=== PATIENT | female | born 1970 | race Caucasian/White ===

== ENCOUNTER 2016-07-09 20:12 | Emergency (ER) | payer SELFPAY ==
[2014-08-12 14:17] VITALS: BMI 23.3
[~2016-07-09 20:12] MED LIST: PRINIVIL10 MG PO; PROAIR HFA8.5 GM INH; PROZAC20 MG PO
[2016-07-09 20:41] LABS: BASOPHILS 0.8 % (0.0-2.0); EOSINOPHILS 1.3 % (0-7); HEMATOCRIT 45.1 % (36.0-48.0); HEMOGLOBIN 15.1 g/dL (12-16); IMMATURE GRANULOCYTES 0.3 % (0-5); LYMPHOCYTES 24.5 % (15-50); MCH 31.9 pg (26.0-34.0); MCHC 33.5 g/dL (31.0-37.0); MCV 95.1 fL (80.0-100.0); MEAN PLATELET VOLUME 10.6 fL (7.4-10.4); MONOCYTES 9.3 % (2-11); NEUTROPHILS 63.8 % (40-80); PLATELET COUNT 499 10x3/uL (130-400); RBC 4.74 10x6/uL (4.00-5.40); RDW 13.3 % (11.5-14.5); WBC 13.2 10x3/uL (4.8-10.8)
[2016-07-09 20:50] LABS: HCG SERUM NEGATIVE (NEGATIVE)
[2016-07-09 20:51] LABS: APTT 29.4 SECONDS (22.8-39.4); INR 0.97 (0.85-1.17); PROTIME 12.8 SECONDS (11.6-15.0)
[2016-07-09 20:58] LABS: ALBUMIN 3.8 g/dL (3.4-5.0); ALKALINE PHOSPHATASE 121 U/L (46-116); ALT (SGPT) 30 U/L (10-68); CALC OSMOLALITY 272 mosm/kg (275-300); CALCIUM 8.9 mg/dL (8.5-10.1); CARBON DIOXIDE 26.2 mmol/L (21.0-32.0); CHLORIDE - SERUM 103 mmol/L (98-107); CREATININE - SERUM 0.7 mg/dL (0.6-1.3); GLUCOSE 90 mg/dL (74-106); POTASSIUM - SERUM 3.7 mmol/L (3.5-5.1); PROTEIN - SERUM 8.1 g/dL (6.4-8.2); SODIUM 137 mmol/L (136-145); UREA NITROGEN 9 mg/dL (7-18); eGFR NON AFRICAN AMERICAN > 90 mL/min (90-120)
== END 2016-07-09 22:40 | disposition home or self-care (01) ==
LOC: D.ER 20:12
PROVIDERS: Surgery
DX: T63.001A Toxic effect of unspecified snake venom, accidental (unintentional), initial encounter (principal); S91.051A Open bite, right ankle, initial encounter; Y92.017 Garden or yard in single-family (private) house as the place of occurrence of the external cause; I10 Essential (primary) hypertension

== ENCOUNTER 2016-09-05 11:13 | Emergency (ER) | payer SELFPAY ==
[2014-08-12 14:17] VITALS: BMI 23.3
== END 2016-09-05 11:47 | disposition home or self-care (01) ==
LOC: D.ER 11:13
DX: L02.811 Cutaneous abscess of head [any part, except face] (principal); B95.62 Methicillin resistant Staphylococcus aureus infection as the cause of diseases classified elsewhere; I10 Essential (primary) hypertension; F17.200 Nicotine dependence, unspecified, uncomplicated

== ENCOUNTER 2016-09-14 09:31 | Emergency (ER) | payer MEDICAID ==
[2014-08-12 14:17] VITALS: BMI 23.3
== END 2016-09-14 10:47 | disposition home or self-care (01) ==
LOC: D.ER 09:31
DX: L73.8 Other specified follicular disorders (principal); B35.0 Tinea barbae and tinea capitis; R51 Headache

== ENCOUNTER 2016-09-30 16:36 | Emergency (ER) | payer MEDICAID ==
[2014-08-12 14:17] VITALS: BMI 23.3
== END 2016-09-30 19:00 | disposition left against medical advice (07) ==
LOC: D.ER 16:36
DX: M25.572 Pain in left ankle and joints of left foot (principal)

== ENCOUNTER 2016-10-01 12:23 | Emergency (ER) | payer MEDICAID ==
[2014-08-12 14:17] VITALS: BMI 23.3
== END 2016-10-01 13:39 | disposition home or self-care (01) ==
LOC: D.ER 12:23
DX: S93.402A Sprain of unspecified ligament of left ankle, initial encounter (principal); W19.XXXA Unspecified fall, initial encounter; Y93.89 Activity, other specified; Y92.89 Other specified places as the place of occurrence of the external cause; S93.602A Unspecified sprain of left foot, initial encounter; I10 Essential (primary) hypertension

== ENCOUNTER 2016-10-23 02:41 | Emergency (ER) | payer MEDICAID ==
[2014-08-12 14:17] VITALS: BMI 23.3
== END 2016-10-23 03:42 | disposition home or self-care (01) ==
LOC: D.ER 02:41
DX: L02.01 Cutaneous abscess of face (principal); S93.402A Sprain of unspecified ligament of left ankle, initial encounter; X58.XXXA Exposure to other specified factors, initial encounter; F17.200 Nicotine dependence, unspecified, uncomplicated

== ENCOUNTER 2016-11-06 10:04 | Emergency (ER) | payer MEDICAID ==
[2014-08-12 14:17] VITALS: BMI 23.3
== END 2016-11-06 11:49 | disposition home or self-care (01) ==
LOC: D.ER 10:04
DX: R51 Headache (principal); L02.416 Cutaneous abscess of left lower limb; I10 Essential (primary) hypertension; F17.200 Nicotine dependence, unspecified, uncomplicated

== ENCOUNTER 2016-11-12 11:31 | Emergency (ER) | payer MEDICAID ==
[2014-08-12 14:17] VITALS: BMI 23.3
== END 2016-11-12 12:18 | disposition home or self-care (01) ==
LOC: D.ER 11:31
DX: L02.811 Cutaneous abscess of head [any part, except face] (principal); F17.200 Nicotine dependence, unspecified, uncomplicated

== ENCOUNTER 2017-01-20 10:06 | Emergency (ER) | payer MEDICAID ==
[2014-08-12 14:17] VITALS: BMI 23.3
== END 2017-01-20 11:53 | disposition home or self-care (01) ==
LOC: D.ER 10:06
DX: L02.611 Cutaneous abscess of right foot (principal); I10 Essential (primary) hypertension

== ENCOUNTER 2017-03-12 05:01 | Emergency (ER) | payer MEDICAID ==
[2014-08-12 14:17] VITALS: BMI 23.3
== END 2017-03-12 07:03 | disposition home or self-care (01) ==
LOC: D.ER 05:01
DX: K08.89 Other specified disorders of teeth and supporting structures (principal); M27.3 Alveolitis of jaws; I10 Essential (primary) hypertension

== ENCOUNTER 2017-04-25 08:22 | Emergency (ER) | payer MEDICAID ==
[2014-08-12 14:17] VITALS: BMI 23.3
== END 2017-04-25 09:45 | disposition home or self-care (01) ==
LOC: D.ER 08:22
DX: J20.9 Acute bronchitis, unspecified (principal)

== ENCOUNTER 2017-04-30 09:54 | Inpatient (IN) | payer MEDICAID ==
[~2017-04-30] VITALS: Ht 154.9 cm; Wt 64.9 kg
--- NOTE | ~2017-04-30 | EC ---
PATIENT:RORY SIMMS DATE OF SERVICE: 04/30/17 SEX: F MEDICAL RECORD: [id number] DATE OF : [birth year] LOCATION:[facility] AGE OF PATIENT: 47 ADMISSION DATE: 04/30/17 REFERRING PHYSICIAN: INTERPRETING PHYSICIAN: LUCY GUPTA MD ECHOCARDIOGRAM REPORT ECHO CHARGES CLINICAL DIAGNOSIS: ECHOCARDIOGRAPHIC MEASUREMENTS (adult normal given) AC root (d.<3.7cm) cm LV Septum d (<1.2 cm> cm Valve Excursion cm LV Septum (systole) cm Left Atria (s.<4.0cm> cm LVPW d(<1.2cm) cm RV (d.<2.3cm) cm LVPW (sytole) cm LV diastole(<5.6CM) cm MV E-F(>70mm/sec) cm LV systole cm LVOT Diameter cm MV exc.(>10mm) cm Est.ejection fraction (50-75%) % Pericardial Effusion DOPPLER: LVIT cm/sec A cm/sec E cm/sec LA cm/sec RVSP mmHg LVOT cm/sec AOP1/2T m/s Asc. 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 Left ventricular chamber size is within normal limits. Left ventricular systolic function is normal. Overall ejection fraction estimated at 60%. 2. Left atrium, right atrium, and right ventricular chamber sizes are within normal limits. 3. Valvular structures have normal structure and motion. ECHOCARDIOGRAM REPORT [id number] RORY SIMMS 4. Doppler interrogation reveals mild mitral regurgitation, no other valvular insufficiency or stenosis and pulmonary systolic pressure is normal estimated at 21 mmHg. 5. No evidence of pericardial effusion or left ventricular thrombus. TRANSINT:[id number] Voice Confirmation ID: [id number] DOCUMENT ID: [id number] 05/05/2017 Edited to correct date of service, dmm. LUCY GUPTA MD at 1759 CC: [id number] DICTATION DATE: 05/01/17 1228 [place]OLLEY OPERATOR: 05/01/17 1236 DIS IN 05/03/17 [facility] [address] [place] [address]
[2017-04-30 10:25] LABS: HEMATOCRIT 45.4 % (36.0-48.0); HEMOGLOBIN 15.3 g/dL (12-16); MCH 31.5 pg (26.0-34.0); MCHC 33.7 g/dL (31.0-37.0); MCV 93.4 fL (80.0-100.0); MEAN PLATELET VOLUME 11.2 fL (7.4-10.4); PLATELET COUNT 378 10x3/uL (130-400); RBC 4.86 10x6/uL (4.00-5.40); RDW 14.5 % (11.5-14.5)
[2017-04-30 10:39] LABS: ALBUMIN 3.4 g/dL (3.4-5.0); ALKALINE PHOSPHATASE 141 U/L (46-116); ALT (SGPT) 186 U/L (10-68); BILIRUBIN - TOTAL 0.42 mg/dL (0.2-1.3); CALC OSMOLALITY 278 mosm/kg (275-300); CALCIUM 9.5 mg/dL (8.5-10.1); CARBON DIOXIDE 30.8 mmol/L (21.0-32.0); CHLORIDE - SERUM 100 mmol/L (98-107); CREATININE - SERUM 0.9 mg/dL (0.6-1.3); GLUCOSE 114 mg/dL (74-106); POTASSIUM - SERUM 3.9 mmol/L (3.5-5.1); PROTEIN - SERUM 6.9 g/dL (6.4-8.2); SODIUM 138 mmol/L (136-145); UREA NITROGEN 19 mg/dL (7-18); eGFR NON AFRICAN AMERICAN 71 mL/min (90-120)
[2017-04-30 10:50] LABS: CKMB 1.1 U/L (0.0-3.6); CREATINE KINASE 34 UL (21-215)
[2017-04-30 10:51] LABS: TROPONIN-I < 0.017 ng/mL (0.000-0.060)
[2017-04-30 11:19] LABS: EOSINOPHILS 5 % (0-7); LYMPHOCYTES 21 % (15-50); MONOCYTES 5 % (2-11); NEUTROPHILS 64 % (40-80); PLATELET ESTIMATE NORMAL; PLATELET MORPHOLOGY GIANT PLTS PRESENT
[2017-04-30] MEDS ORDERED: CATAPRES0.1 MG PO (15:13)
[2017-04-30 15:14] VITALS: BP 148/75; BMI 27.0
[2017-04-30 19:07] LABS: CKMB 0.9 U/L (0.0-3.6); CREATINE KINASE 27 UL (21-215)
[2017-04-30 19:08] LABS: TROPONIN-I < 0.017 ng/mL (0.000-0.060)
[2017-04-30 21:31] VITALS: BP 153/96
[2017-05-01 01:21] LABS: CKMB 0.9 U/L (0.0-3.6); CREATINE KINASE 24 UL (21-215); TROPONIN-I 0.022 ng/mL (0.000-0.060)
[2017-05-01 01:38] VITALS: BP 106/57
[2017-05-01 06:17] LABS: BASOPHILS 0.1 % (0-2); EOSINOPHILS 2.7 % (0-7); HEMATOCRIT 42.9 % (36.0-48.0); HEMOGLOBIN 14.2 g/dL (12-16); IMMATURE GRANULOCYTES 1.3 % (0-5); LYMPHOCYTES 42.9 % (15-50); MCHC 33.1 g/dL (31.0-37.0); MCV 93.7 fL (80.0-100.0); MEAN PLATELET VOLUME 10.9 fL (7.4-10.4); MONOCYTES 12.6 % (2-11); NEUTROPHILS 40.4 % (40-80); PLATELET COUNT 367 10x3/uL (130-400); RBC 4.58 10x6/uL (4.00-5.40); RDW 14.6 % (11.5-14.5); WBC 16.5 10x3/uL (4.8-10.8)
[2017-05-01 06:48] LABS: ALBUMIN 2.9 g/dL (3.4-5.0); ALKALINE PHOSPHATASE 117 U/L (46-116); CALC OSMOLALITY 280 mosm/kg (275-300); CALCIUM 8.7 mg/dL (8.5-10.1); CARBON DIOXIDE 29.9 mmol/L (21.0-32.0); CHLORIDE - SERUM 104 mmol/L (98-107); CKMB 0.7 U/L (0.0-3.6); CREATINE KINASE 19 UL (21-215); CREATININE - SERUM 0.8 mg/dL (0.6-1.3); GLUCOSE 82 mg/dL (74-106); POTASSIUM - SERUM 4.3 mmol/L (3.5-5.1); PROTEIN - SERUM 6.1 g/dL (6.4-8.2); SODIUM 141 mmol/L (136-145); TROPONIN-I < 0.017 ng/mL (0.000-0.060); UREA NITROGEN 16 mg/dL (7-18); eGFR NON AFRICAN AMERICAN 81 mL/min (90-120)
[2017-05-01 06:49] LABS: ALT (SGPT) 133 U/L (10-68)
[2017-05-01 07:46] VITALS: BP 193/89
[2017-05-01 08:05] VITALS: BP 194/86
[2017-05-01 12:10] VITALS: BP 155/81
[2017-05-01 14:25] VITALS: Ht 154.9 cm; Wt 64.9 kg
[2017-05-01 16:17] VITALS: BP 189/93
[2017-05-01 22:34] VITALS: BP 174/87
[2017-05-02 04:48] VITALS: BP 171/96
[2017-05-02 05:50] LABS: BASOPHILS 0.2 % (0-2); HEMATOCRIT 41.7 % (36.0-48.0); HEMOGLOBIN 13.5 g/dL (12-16); IMMATURE GRANULOCYTES 1.5 % (0-5); LYMPHOCYTES 28.2 % (15-50); MCHC 32.4 g/dL (31.0-37.0); MCV 95.6 fL (80.0-100.0); MEAN PLATELET VOLUME 11.8 fL (7.4-10.4); NEUTROPHILS 52.1 % (40-80); PLATELET COUNT 332 10x3/uL (130-400); RBC 4.36 10x6/uL (4.00-5.40); RDW 14.7 % (11.5-14.5)
[2017-05-02 06:09] LABS: ALBUMIN 2.8 g/dL (3.4-5.0); ALKALINE PHOSPHATASE 127 U/L (46-116); ALT (SGPT) 102 U/L (10-68); CALC OSMOLALITY 283 mosm/kg (275-300); CALCIUM 9.1 mg/dL (8.5-10.1); CARBON DIOXIDE 30.5 mmol/L (21.0-32.0); CHLORIDE - SERUM 105 mmol/L (98-107); CREATININE - SERUM 0.8 mg/dL (0.6-1.3); GLUCOSE 87 mg/dL (74-106); POTASSIUM - SERUM 4.2 mmol/L (3.5-5.1); PROTEIN - SERUM 5.8 g/dL (6.4-8.2); SODIUM 142 mmol/L (136-145); UREA NITROGEN 19 mg/dL (7-18); eGFR NON AFRICAN AMERICAN 81 mL/min (90-120)
[2017-05-02 08:43] VITALS: BP 177/86
[2017-05-02 12:45] VITALS: BP 161/83
[2017-05-02 21:30] VITALS: BP 153/99
[2017-05-03 01:13] VITALS: BP 148/76
[2017-05-03 05:25] VITALS: BP 169/88
[2017-05-03 05:28] LABS: BASOPHILS 0.1 % (0-2); EOSINOPHILS 4.6 % (0-7); HEMATOCRIT 40.5 % (36.0-48.0); HEMOGLOBIN 13.1 g/dL (12-16); IMMATURE GRANULOCYTES 1.1 % (0-5); LYMPHOCYTES 26.3 % (15-50); MCH 31.1 pg (26.0-34.0); MCHC 32.3 g/dL (31.0-37.0); MCV 96.2 fL (80.0-100.0); MEAN PLATELET VOLUME 10.8 fL (7.4-10.4); MONOCYTES 15.4 % (2-11); NEUTROPHILS 52.5 % (40-80); PLATELET COUNT 336 10x3/uL (130-400); RBC 4.21 10x6/uL (4.00-5.40); RDW 14.9 % (11.5-14.5); WBC 15.5 10x3/uL (4.8-10.8)
[2017-05-03 05:50] LABS: ALBUMIN 2.8 g/dL (3.4-5.0); ALKALINE PHOSPHATASE 124 U/L (46-116); ALT (SGPT) 85 U/L (10-68); BILIRUBIN - TOTAL 0.21 mg/dL (0.2-1.3); CALC OSMOLALITY 283 mosm/kg (275-300); CALCIUM 9.2 mg/dL (8.5-10.1); CARBON DIOXIDE 31.2 mmol/L (21.0-32.0); CHLORIDE - SERUM 104 mmol/L (98-107); CREATININE - SERUM 0.8 mg/dL (0.6-1.3); GLUCOSE 96 mg/dL (74-106); POTASSIUM - SERUM 4.5 mmol/L (3.5-5.1); PROTEIN - SERUM 5.9 g/dL (6.4-8.2); SODIUM 141 mmol/L (136-145); UREA NITROGEN 20 mg/dL (7-18); eGFR NON AFRICAN AMERICAN 81 mL/min (90-120)
[2017-05-03 08:09] VITALS: BP 166/92
[2017-05-03 12:45] VITALS: BP 168/90
[2017-05-03] MEDS ORDERED: ADVAIR 250/501 DISK INH (12:58)
[2017-05-03] MEDS ORDERED: NICODERM C1 PATCH .3 TRANSDERM (12:59)
[2017-05-03] MEDS ORDERED: CHANTIX0.5 MG PO (13:00)
[2017-05-03] MEDS ORDERED: DOXYCYCLINE HY100 M2 PO (13:02)
[2017-05-03] MEDS ORDERED: ADVAIR 100/501 DISK INH (14:21)
== END 2017-05-03 14:45 | disposition home or self-care (01) | DRG 194 ==
LOC: D.ER 09:54 → D.MS 13:39
PROVIDERS: Family Medicine; Internal Medicine Nephrology; Nurse Practitioner Family
DX: J18.9 Pneumonia, unspecified organism (principal); F17.203 Nicotine dependence unspecified, with withdrawal; J44.9 Chronic obstructive pulmonary disease, unspecified; I10 Essential (primary) hypertension; Z78.0 Asymptomatic menopausal state; R07.89 Other chest pain; Z23 Encounter for immunization

== ENCOUNTER 2017-05-21 09:30 | Emergency (ER) | payer MEDICAID ==
[2017-05-01 14:25] VITALS: BMI 27.0
[~2017-05-21 09:30] MED LIST changes: +ADVAIR 100/501 DISK INH; +ADVAIR 250/501 DISK INH; +CATAPRES0.1 MG PO; +CHANTIX0.5 MG PO; +DOXYCYCLINE HY100 M2 PO; +NICODERM C1 PATCH .3 TRANSDERM
== END 2017-05-21 11:20 | disposition home or self-care (01) ==
LOC: D.ER 09:30
DX: G43.909 Migraine, unspecified, not intractable, without status migrainosus (principal); I10 Essential (primary) hypertension; F17.200 Nicotine dependence, unspecified, uncomplicated

== ENCOUNTER 2017-05-24 10:38 | Emergency (ER) | payer MEDICAID ==
[2017-05-01 14:25] VITALS: BMI 27.0
== END 2017-05-24 12:55 | disposition home or self-care (01) ==
LOC: D.ER 10:38
DX: R51 Headache (principal); I10 Essential (primary) hypertension

== ENCOUNTER 2017-05-30 06:17 | Emergency (ER) | payer MEDICAID ==
[2017-05-01 14:25] VITALS: BMI 27.0
[2017-05-30 06:42] LABS: HEMATOCRIT 42.8 % (36.0-48.0); HEMOGLOBIN 14.4 g/dL (12-16); MCH 31.4 pg (26.0-34.0); MCHC 33.6 g/dL (31.0-37.0); MCV 93.2 fL (80.0-100.0); MEAN PLATELET VOLUME 11.1 fL (7.4-10.4); PLATELET COUNT 312 10x3/uL (130-400); RBC 4.59 10x6/uL (4.00-5.40); WBC 9.6 10x3/uL (4.8-10.8)
[2017-05-30 07:11] LABS: ALBUMIN 3.5 g/dL (3.4-5.0); ALKALINE PHOSPHATASE 150 U/L (46-116); ALT (SGPT) 50 U/L (10-68); CALC OSMOLALITY 281 mosm/kg (275-300); CALCIUM 8.5 mg/dL (8.5-10.1); CARBON DIOXIDE 26.4 mmol/L (21.0-32.0); CHLORIDE - SERUM 104 mmol/L (98-107); CREATININE - SERUM 0.8 mg/dL (0.6-1.3); GLUCOSE 82 mg/dL (74-106); POTASSIUM - SERUM 3.7 mmol/L (3.5-5.1); PROTEIN - SERUM 7.3 g/dL (6.4-8.2); SODIUM 141 mmol/L (136-145); UREA NITROGEN 17 mg/dL (7-18); eGFR NON AFRICAN AMERICAN 81 mL/min (90-120)
[2017-05-30 07:12] LABS: EOSINOPHILS 1 % (0-7); LYMPHOCYTES 38 % (15-50); MONOCYTES 10 % (2-11); NEUTROPHILS 45 % (40-80)
[2017-05-30 07:13] LABS: BILIRUBIN - TOTAL 0.09 mg/dL (0.2-1.3); PLATELET ESTIMATE NORMAL
== END 2017-05-30 07:42 | disposition home or self-care (01) ==
LOC: D.ER 06:17
PROVIDERS: Family Medicine
DX: B34.9 Viral infection, unspecified (principal); J06.9 Acute upper respiratory infection, unspecified; I10 Essential (primary) hypertension

== ENCOUNTER 2017-07-04 11:52 | Emergency (ER) | payer MEDICAID ==
[2017-05-01 14:25] VITALS: BMI 27.0
[2017-07-04 12:34] LABS: BASOPHILS 0.4 % (0-2); EOSINOPHILS 2.1 % (0-7); HEMATOCRIT 39.8 % (36.0-48.0); HEMOGLOBIN 13.3 g/dL (12-16); IMMATURE GRANULOCYTES 0.4 % (0-5); LYMPHOCYTES 26.9 % (15-50); MCH 32.4 pg (26.0-34.0); MCHC 33.4 g/dL (31.0-37.0); MCV 97.1 fL (80.0-100.0); MEAN PLATELET VOLUME 10.4 fL (7.4-10.4); MONOCYTES 11.2 % (2-11); PLATELET COUNT 361 10x3/uL (130-400); RDW 14.7 % (11.5-14.5); WBC 13.5 10x3/uL (4.8-10.8)
[2017-07-04 12:49] LABS: ALBUMIN 3.2 g/dL (3.4-5.0); ALKALINE PHOSPHATASE 112 U/L (46-116); ALT (SGPT) 16 U/L (10-68); BILIRUBIN - TOTAL 0.22 mg/dL (0.2-1.3); CALC OSMOLALITY 285 mosm/kg (275-300); CALCIUM 8.5 mg/dL (8.5-10.1); CARBON DIOXIDE 28.4 mmol/L (21.0-32.0); CHLORIDE - SERUM 107 mmol/L (98-107); CREATININE - SERUM 0.7 mg/dL (0.6-1.3); GLUCOSE 102 mg/dL (74-106); MAGNESIUM - SERUM 1.6 mg/dL (1.8-2.4); POTASSIUM - SERUM 4.2 mmol/L (3.5-5.1); PROTEIN - SERUM 6.8 g/dL (6.4-8.2); SODIUM 143 mmol/L (136-145); UREA NITROGEN 14 mg/dL (7-18); eGFR NON AFRICAN AMERICAN > 90 mL/min (90-120)
[2017-07-04 14:24] LABS: APPEARANCE HAZY (CLEAR); BILIRUBIN NEGATIVE (NEGATIVE); COLOR YELLOW (YELLOW); GLUCOSE NEGATIVE (NEGATIVE); KETONE NEGATIVE (NEGATIVE); NITRITE NEGATIVE (NEGATIVE); PROTEIN NEGATIVE (NEGATIVE); SPECIFIC GRAVITY 1.015 (1.005-1.020); UROBILINOGEN NORMAL (NORMAL)
[2017-07-04 15:09] LABS: UDS - AMPHET NEGATIVE QUAL (NEGATIVE); UDS - BARB POSITIVE QUAL (NEGATIVE); UDS - BENZO NEGATIVE QUAL (NEGATIVE); UDS - COCAINE NEGATIVE QUAL (NEGATIVE); UDS - OPIATE NEGATIVE QUAL (NEGATIVE); UDS - PCP NEGATIVE QUAL (NEGATIVE); UDS - THC POSITIVE QUAL (NEGATIVE)
== END 2017-07-04 14:50 | disposition home or self-care (01) ==
LOC: D.ER 11:52
PROVIDERS: Family Medicine
DX: G40.909 Epilepsy, unspecified, not intractable, without status epilepticus (principal); R51 Headache; J01.90 Acute sinusitis, unspecified; I10 Essential (primary) hypertension; F17.200 Nicotine dependence, unspecified, uncomplicated

== ENCOUNTER 2017-07-13 19:24 | Emergency (ER) | payer MEDICAID ==
[2017-05-01 14:25] VITALS: BMI 27.0
== END 2017-07-13 20:39 | disposition home or self-care (01) ==
LOC: D.ER 19:24
DX: K02.9 Dental caries, unspecified (principal); K08.89 Other specified disorders of teeth and supporting structures; I10 Essential (primary) hypertension; G40.909 Epilepsy, unspecified, not intractable, without status epilepticus

== ENCOUNTER 2017-07-15 14:11 | Emergency (ER) | payer MEDICAID ==
[2017-05-01 14:25] VITALS: BMI 27.0
== END 2017-07-15 14:38 | disposition home or self-care (01) ==
LOC: D.ER 14:11
DX: K02.9 Dental caries, unspecified (principal); K08.89 Other specified disorders of teeth and supporting structures; F17.200 Nicotine dependence, unspecified, uncomplicated; I10 Essential (primary) hypertension; G40.909 Epilepsy, unspecified, not intractable, without status epilepticus

== ENCOUNTER 2017-07-22 11:28 | Emergency (ER) | payer MEDICAID ==
[2017-05-01 14:25] VITALS: BMI 27.0
[2017-07-22 12:27] LABS: BASOPHILS 0.7 % (0-2); EOSINOPHILS 2.9 % (0-7); HEMATOCRIT 41.2 % (36.0-48.0); IMMATURE GRANULOCYTES 0.3 % (0-5); LYMPHOCYTES 29.5 % (15-50); MCH 32.7 pg (26.0-34.0); MCV 96.3 fL (80.0-100.0); MEAN PLATELET VOLUME 10.9 fL (7.4-10.4); MONOCYTES 11.9 % (2-11); NEUTROPHILS 54.7 % (40-80); PLATELET COUNT 361 10x3/uL (130-400); RBC 4.28 10x6/uL (4.00-5.40); RDW 13.8 % (11.5-14.5); WBC 12.2 10x3/uL (4.8-10.8)
[2017-07-22 12:40] LABS: ALBUMIN 3.3 g/dL (3.4-5.0); ALKALINE PHOSPHATASE 109 U/L (46-116); ALT (SGPT) 15 U/L (10-68); BILIRUBIN - TOTAL 0.17 mg/dL (0.2-1.3); CALC OSMOLALITY 278 mosm/kg (275-300); CALCIUM 8.5 mg/dL (8.5-10.1); CARBON DIOXIDE 28.5 mmol/L (21.0-32.0); CHLORIDE - SERUM 105 mmol/L (98-107); CREATININE - SERUM 0.8 mg/dL (0.6-1.3); GLUCOSE 95 mg/dL (74-106); POTASSIUM - SERUM 4.2 mmol/L (3.5-5.1); PROTEIN - SERUM 6.6 g/dL (6.4-8.2); SODIUM 140 mmol/L (136-145); UREA NITROGEN 12 mg/dL (7-18); eGFR NON AFRICAN AMERICAN 81 mL/min (90-120)
[2017-07-22 12:43] LABS: CREATINE KINASE 44 UL (21-215); LIPASE 112 U/L (73-393); TROPONIN-I < 0.017 ng/mL (0.000-0.060)
[2017-07-22 12:52] LABS: UDS - AMPHET NEGATIVE QUAL (NEGATIVE); UDS - BARB POSITIVE QUAL (NEGATIVE); UDS - BENZO NEGATIVE QUAL (NEGATIVE); UDS - COCAINE NEGATIVE QUAL (NEGATIVE); UDS - OPIATE NEGATIVE QUAL (NEGATIVE); UDS - PCP NEGATIVE QUAL (NEGATIVE); UDS - THC POSITIVE QUAL (NEGATIVE)
[2017-07-22 12:54] LABS: APPEARANCE CLEAR (CLEAR); BILIRUBIN NEGATIVE (NEGATIVE); COLOR STRAW (YELLOW); GLUCOSE NEGATIVE (NEGATIVE); KETONE NEGATIVE (NEGATIVE); NITRITE NEGATIVE (NEGATIVE); PROTEIN NEGATIVE (NEGATIVE); SPECIFIC GRAVITY 1.005 (1.005-1.020); UROBILINOGEN NORMAL (NORMAL)
== END 2017-07-22 12:54 | disposition left against medical advice (07) ==
LOC: D.ER 11:28
PROVIDERS: Family Medicine
DX: R56.9 Unspecified convulsions (principal); I10 Essential (primary) hypertension

== ENCOUNTER 2017-09-05 18:05 | Emergency (ER) | payer MEDICAID ==
[2017-05-01 14:25] VITALS: BMI 27.0
== END 2017-09-05 19:30 | disposition left against medical advice (07) ==
LOC: D.ER 18:05
DX: R05 Cough (principal)

== ENCOUNTER 2017-10-14 10:37 | Emergency (ER) | payer MEDICAID ==
[~2017-10-14] VITALS: Ht 154.9 cm; Wt 65.0 kg
[2017-10-14 10:48] VITALS: Ht 154.9 cm; Wt 65.0 kg
[2017-10-14] MEDS ORDERED: TORADOL10 MG PO (11:57)
[2017-10-14] MEDS ORDERED: CATAPRES0.1 MG PO (12:01)
[2017-10-14] MEDS ORDERED: KEPPRA500 MG PO (12:01)
[2017-10-14] MEDS ORDERED: ZESTRIL10 MG PO (12:01)
[2017-10-14 12:45] VITALS: BP 129/68
== END 2017-10-14 12:46 | disposition home or self-care (01) ==
LOC: D.ER 10:37
DX: S20.212A Contusion of left front wall of thorax, initial encounter (principal); S20.211A Contusion of right front wall of thorax, initial encounter; Y04.2XXA Assault by strike against or bumped into by another person, initial encounter; Y93.89 Activity, other specified; Y92.019 Unspecified place in single-family (private) house as the place of occurrence of the external cause; I10 Essential (primary) hypertension; J44.9 Chronic obstructive pulmonary disease, unspecified

== ENCOUNTER 2017-11-15 14:01 | Emergency (ER) | payer MEDICAID ==
[~2017-11-15] VITALS: Ht 154.9 cm; Wt 68.2 kg
[~2017-11-15 14:01] MED LIST changes: +KEPPRA500 MG PO; +TORADOL10 MG PO; +ZESTRIL10 MG PO
[2017-11-15 14:21] VITALS: Ht 154.9 cm; Wt 68.2 kg
[2017-11-15] MEDS ORDERED: ROBAXIN500 MG PO (16:20)
[2017-11-15 17:22] VITALS: BP 145/72
== END 2017-11-15 16:30 | disposition home or self-care (01) ==
LOC: D.ER 14:01
DX: M79.604 Pain in right leg (principal); I10 Essential (primary) hypertension; I25.10 Atherosclerotic heart disease of native coronary artery without angina pectoris; J44.9 Chronic obstructive pulmonary disease, unspecified; F17.200 Nicotine dependence, unspecified, uncomplicated

== ENCOUNTER 2017-12-13 17:37 | Emergency (ER) | payer SELFPAY ==
[~2017-12-13] VITALS: Ht 154.9 cm; Wt 68.2 kg
[~2017-12-13 17:37] MED LIST changes: +ROBAXIN500 MG PO
[2017-12-13 17:43] VITALS: Ht 154.9 cm; Wt 68.2 kg
[2017-12-13 18:38] LABS: BASOPHILS 0.4 % (0-2); EOSINOPHILS 1.5 % (0-7); HEMATOCRIT 43.7 % (36.0-48.0); IMMATURE GRANULOCYTES 0.2 % (0-5); LYMPHOCYTES 26.2 % (15-50); MCH 32.3 pg (26.0-34.0); MCHC 34.3 g/dL (31.0-37.0); MEAN PLATELET VOLUME 10.6 fL (7.4-10.4); MONOCYTES 11.2 % (2-11); NEUTROPHILS 60.5 % (40-80); PLATELET COUNT 406 10x3/uL (130-400); RBC 4.65 10x6/uL (4.00-5.40)
[2017-12-13 19:00] LABS: ALBUMIN 3.5 g/dL (3.4-5.0); ANION GAP 12.3 mmol/L (8-16); BILIRUBIN - TOTAL 0.36 mg/dL (0.2-1.3); CALCIUM 8.6 mg/dL (8.5-10.1); CARBON DIOXIDE 28.2 mmol/L (21.0-32.0); CREATININE - SERUM 0.9 mg/dL (0.6-1.3); POTASSIUM - SERUM 3.5 mmol/L (3.5-5.1); PROTEIN - SERUM 7.1 g/dL (6.4-8.2)
[2017-12-13] MEDS ORDERED: CLEOCIN HCL300 MG PO (21:29)
[2017-12-13] MEDS ORDERED: VOLTAREN75 MG PO (21:29)
[2017-12-13 22:01] VITALS: BP 172/100
== END 2017-12-13 22:00 | disposition home or self-care (01) ==
LOC: D.ER 17:37
PROVIDERS: Family Medicine
DX: G43.909 Migraine, unspecified, not intractable, without status migrainosus (principal); K04.7 Periapical abscess without sinus; K08.89 Other specified disorders of teeth and supporting structures; I10 Essential (primary) hypertension; I25.10 Atherosclerotic heart disease of native coronary artery without angina pectoris; J44.9 Chronic obstructive pulmonary disease, unspecified; F17.200 Nicotine dependence, unspecified, uncomplicated

== ENCOUNTER 2018-01-20 13:40 | Emergency (ER) | payer SELFPAY ==
[~2018-01-20] VITALS: Ht 154.9 cm; Wt 68.2 kg
[~2018-01-20 13:40] MED LIST changes: +CLEOCIN HCL300 MG PO; +VOLTAREN75 MG PO
[2018-01-20 14:03] VITALS: Ht 154.9 cm; Wt 68.2 kg
[2018-01-20] MEDS ORDERED: NORVASC10 MG PO (15:36)
[2018-01-20 16:08] VITALS: BP 152/103
== END 2018-01-20 16:08 | disposition home or self-care (01) ==
LOC: D.ER 13:40
DX: G43.909 Migraine, unspecified, not intractable, without status migrainosus (principal); I10 Essential (primary) hypertension; Z91.14 Patient's other noncompliance with medication regimen; G40.909 Epilepsy, unspecified, not intractable, without status epilepticus; I25.10 Atherosclerotic heart disease of native coronary artery without angina pectoris; J44.9 Chronic obstructive pulmonary disease, unspecified; F17.200 Nicotine dependence, unspecified, uncomplicated

== ENCOUNTER 2018-09-18 01:56 | Emergency (ER) | payer SELFPAY ==
[~2018-09-18 01:56] MED LIST changes: +NORVASC10 MG PO
[2018-09-18 02:08] VITALS: BMI 28.4
[2018-09-18] MEDS ORDERED: FLOXIN 0.3 % OTI5 ML LEFT EAR (04:08)
[2018-09-18 04:17] VITALS: BP 132/79
== END 2018-09-18 04:17 | disposition home or self-care (01) ==
LOC: D.ER 01:56
DX: G43.909 Migraine, unspecified, not intractable, without status migrainosus (principal); H60.92 Unspecified otitis externa, left ear

== ENCOUNTER 2018-11-16 15:35 | Emergency (ER) | payer MEDICAID ==
[~2018-11-16] VITALS: Ht 154.9 cm; Wt 63.6 kg
[~2018-11-16 15:35] MED LIST changes: +FLOXIN 0.3 % OTI5 ML LEFT EAR
[2018-11-16 16:01] VITALS: BP 178/107; Ht 154.9 cm; Wt 63.6 kg
[2018-11-16] MEDS ORDERED: NAPROSYN500 MG PO (18:09)
== END 2018-11-16 18:42 | disposition home or self-care (01) ==
LOC: D.ER 15:35
DX: S43.402A Unspecified sprain of left shoulder joint, initial encounter (principal); W19.XXXA Unspecified fall, initial encounter; S93.401A Sprain of unspecified ligament of right ankle, initial encounter; I10 Essential (primary) hypertension; F17.200 Nicotine dependence, unspecified, uncomplicated

== ENCOUNTER 2019-01-18 14:16 | Emergency (ER) | payer MEDICAID ==
[~2019-01-18] VITALS: Ht 154.9 cm; Wt 54.5 kg
[~2019-01-18 14:16] MED LIST changes: +NAPROSYN500 MG PO
[2019-01-18 14:30] VITALS: Ht 154.9 cm; Wt 54.5 kg
[2019-01-18] MEDS ORDERED: ZESTRIL10 MG PO (16:23)
[2019-01-18] MEDS ORDERED: KEPPRA500 MG PO (16:23)
[2019-01-18 16:31] VITALS: BP 204/105
== END 2019-01-18 16:41 | disposition home or self-care (01) ==
LOC: D.ER 14:16
DX: R51 Headache (principal)

== ENCOUNTER 2019-03-06 07:43 | Emergency (ER) | payer MEDICAID ==
[~2019-03-06] VITALS: Ht 154.9 cm; Wt 65.0 kg
[2019-03-06 07:47] VITALS: Ht 154.9 cm; Wt 65.0 kg
[2019-03-06] MEDS ORDERED: ACETAMINOPHEN500 M1 PO (08:37)
[2019-03-06] MEDS ORDERED: IBUPROFEN800 MG PO (08:37)
[2019-03-06] MEDS ORDERED: CYCLOBENZAPRINE10 MG PO (08:37)
[2019-03-06] MEDS ORDERED: LISINOPRIL-HCT1 EAC7 PO (08:43)
[2019-03-06 09:10] VITALS: BP 209/98
== END 2019-03-06 09:10 | disposition home or self-care (01) ==
LOC: D.ER 07:43
DX: S93.402A Sprain of unspecified ligament of left ankle, initial encounter (principal); V09.9XXA Pedestrian injured in unspecified transport accident, initial encounter; Y93.9 Activity, unspecified; Y92.9 Unspecified place or not applicable; M79.18 Myalgia, other site; M79.605 Pain in left leg; S93.602A Unspecified sprain of left foot, initial encounter; I10 Essential (primary) hypertension; Z72.0 Tobacco use; J45.909 Unspecified asthma, uncomplicated

== ENCOUNTER 2019-03-20 13:26 | Emergency (ER) | payer MEDICAID ==
[2019-03-06 07:47] VITALS: BMI 27.0
[~2019-03-20 13:26] MED LIST changes: +ACETAMINOPHEN500 M1 PO; +CYCLOBENZAPRINE10 MG PO; +IBUPROFEN800 MG PO; +LISINOPRIL-HCT1 EAC7 PO
== END 2019-03-20 14:02 | disposition left against medical advice (07) ==
LOC: D.ER 13:26
DX: K64.9 Unspecified hemorrhoids (principal)

== ENCOUNTER 2019-04-30 12:29 | Emergency (ER) | payer MEDICAID ==
[~2019-04-30] VITALS: Ht 154.9 cm; Wt 63.6 kg
[2019-04-30 12:34] VITALS: Ht 154.9 cm; Wt 63.6 kg
[2019-04-30 12:58] LABS: BASOPHILS 0.5 % (0-2); HEMATOCRIT 48.2 % (36.0-48.0); IMMATURE GRANULOCYTES 0.3 % (0-5); LYMPHOCYTES 32.1 % (15-50); MCH 31.5 pg (26.0-34.0); MCHC 33.2 g/dL (31.0-37.0); MCV 94.9 fL (80.0-100.0); MEAN PLATELET VOLUME 11.1 fL (7.4-10.4); MONOCYTES 8.6 % (2-11); NEUTROPHILS 57.5 % (40-80); PLATELET COUNT 391 10x3/uL (130-400); RBC 5.08 10x6/uL (4.00-5.40); WBC 14.7 10x3/uL (4.8-10.8)
[2019-04-30 13:09] LABS: APTT 31.3 SECONDS (22.8-39.4); CALC OSMOLALITY 280 mosm/kg (275-300); CARBON DIOXIDE 29.7 mmol/L (21.0-32.0); CHLORIDE - SERUM 103 mmol/L (98-107); CREATININE - SERUM 0.9 mg/dL (0.6-1.3); GLUCOSE 111 mg/dL (74-106); INR 1.02 (0.85-1.17); POTASSIUM - SERUM 3.4 mmol/L (3.5-5.1); PROTIME 13.3 SECONDS (11.6-15.0); SODIUM 140 mmol/L (136-145); UREA NITROGEN 15 mg/dL (7-18); eGFR NON AFRICAN AMERICAN 70 mL/min (90-120)
[2019-04-30 13:24] LABS: ALBUMIN 3.9 g/dL (3.4-5.0); ALKALINE PHOSPHATASE 139 U/L (46-116); ALT (SGPT) 29 U/L (10-68); BILIRUBIN - TOTAL 0.53 mg/dL (0.2-1.3); CKMB 2.6 U/L (0.0-3.6); CREATINE KINASE 114 UL (21-215); MAGNESIUM - SERUM 1.7 mg/dL (1.8-2.4); PROTEIN - SERUM 7.8 g/dL (6.4-8.2)
[2019-04-30 13:25] LABS: TROPONIN-I < 0.017 ng/mL (0.000-0.060)
[2019-04-30] MEDS ORDERED: KEPPRA500 MG PO (14:15)
[2019-04-30] MEDS ORDERED: LISINOPRIL20 MG PO (14:15)
[2019-04-30 14:37] VITALS: BP 163/91
== END 2019-04-30 14:38 | disposition home or self-care (01) ==
LOC: D.ER 12:29
PROVIDERS: Family Medicine
DX: I10 Essential (primary) hypertension (principal); Z91.14 Patient's other noncompliance with medication regimen; G40.909 Epilepsy, unspecified, not intractable, without status epilepticus; J44.9 Chronic obstructive pulmonary disease, unspecified; Z72.0 Tobacco use

== ENCOUNTER 2019-09-05 12:13 | Emergency (ER) | payer MEDICAID ==
[~2019-09-05] VITALS: Ht 154.9 cm; Wt 56.8 kg
[~2019-09-05 12:13] MED LIST changes: +LISINOPRIL20 MG PO
[2019-09-05 12:16] VITALS: BP 174/107; Ht 154.9 cm; Wt 56.8 kg
== END 2019-09-05 15:00 | disposition left against medical advice (07) ==
LOC: D.ER 12:13
DX: S02.32XA Fracture of orbital floor, left side, initial encounter for closed fracture (principal); Y08.89XA Assault by other specified means, initial encounter; Y93.9 Activity, unspecified; Y92.9 Unspecified place or not applicable; J44.9 Chronic obstructive pulmonary disease, unspecified; Z72.0 Tobacco use; Z53.29 Procedure and treatment not carried out because of patient's decision for other reasons

== ENCOUNTER 2020-08-18 07:54 | Emergency (ER) | payer BC ==
[~2020-08-18] VITALS: Ht 154.9 cm; Wt 54.5 kg
[2020-08-18 08:01] VITALS: Ht 154.9 cm; Wt 54.5 kg
[2020-08-18] MEDS ORDERED: ALBUTEROL SULF8.5 GM INH (08:05)
[2020-08-18 08:48] LABS: BASOPHILS 0.4 % (0-2); EOSINOPHILS 0.6 % (0-7); HEMATOCRIT 46.4 % (36.0-48.0); HEMOGLOBIN 15.4 g/dL (12-16); IMMATURE GRANULOCYTES 0.4 % (0-5); LYMPHOCYTE ABS# 2.72 10x3/uL (1.18-3.74); LYMPHOCYTES 18.6 % (15-50); MCH 31.2 pg (26.0-34.0); MCHC 33.2 g/dL (31.0-37.0); MCV 93.9 fL (80.0-100.0); MONOCYTES 9.2 % (2-11); NEUTROPHIL ABS# 10.32 10x3/uL (1.56-6.13); NEUTROPHILS 70.8 % (40-80); PLATELET COUNT 351 10x3/uL (130-400); RBC 4.94 10x6/uL (4.00-5.40); RDW 14.6 % (11.5-14.5); WBC 14.6 10x3/uL (4.8-10.8)
[2020-08-18 08:55] LABS: CALC OSMOLALITY 281 mosm/kg (275-300); CALCIUM 8.9 mg/dL (8.5-10.1); CARBON DIOXIDE 22.2 mmol/L (21.0-32.0); CHLORIDE - SERUM 105 mmol/L (98-107); CREATININE - SERUM 0.8 mg/dL (0.6-1.3); GLUCOSE 146 mg/dL (74-106); POTASSIUM - SERUM 3.8 mmol/L (3.5-5.1); SODIUM 139 mmol/L (136-145); UREA NITROGEN 15 mg/dL (7-18); eGFR NON AFRICAN AMERICAN 80 mL/min (90-120)
[2020-08-18 09:01] LABS: APTT 30.2 SECONDS (22.8-39.4); INR 1.25 (0.85-1.17); PROTIME 14.5 SECONDS (11.6-15.0)
[2020-08-18 09:16] LABS: ALBUMIN 3.2 g/dL (3.4-5.0); ALKALINE PHOSPHATASE 158 U/L (30-120); ALT (SGPT) 68 U/L (10-68); BILIRUBIN - TOTAL 0.73 mg/dL (0.2-1.3); CKMB 4.3 U/L (0.0-3.6); CREATINE KINASE 101 UL (21-215); PRO BNP 10146 pg/mL (0-125)
[2020-08-18 09:19] LABS: TROPONIN-I 0.115 ng/mL (0.000-0.060)
[2020-08-18 09:30] VITALS: BP 204/111
[2020-08-18 11:22] LABS: BILIRUBIN NEGATIVE (NEGATIVE); KETONE NEGATIVE (NEGATIVE); NITRITE NEGATIVE (NEGATIVE); UROBILINOGEN NORMAL mg/dL (< 2)
[2020-08-18 11:26] LABS: UDS - AMPHET NEGATIVE QUAL (NEGATIVE); UDS - BARB NEGATIVE QUAL (NEGATIVE); UDS - BENZO NEGATIVE QUAL (NEGATIVE); UDS - COCAINE NEGATIVE QUAL (NEGATIVE); UDS - OPIATE NEGATIVE QUAL (NEGATIVE); UDS - PCP NEGATIVE QUAL (NEGATIVE); UDS - THC NEGATIVE QUAL (NEGATIVE)
== END 2020-08-18 11:59 | disposition left against medical advice (07) ==
LOC: D.ER 07:54
PROVIDERS: Family Medicine
DX: R06.02 Shortness of breath (principal); R07.9 Chest pain, unspecified; I10 Essential (primary) hypertension; Z72.0 Tobacco use; R77.8 Other specified abnormalities of plasma proteins; Z53.29 Procedure and treatment not carried out because of patient's decision for other reasons